=== PATIENT | female | born 1980 | race Hispanic/Latino ===

== ENCOUNTER 2024-04-03 21:13 | Emergency (ER) | payer BC ==
[~2024-04-03] VITALS: Ht 149.9 cm; Wt 70.3 kg
[2024-04-03 22:13] LABS: BASOPHILS # (AUTO) 0.04 K/uL (0.00-0.20); BASOPHILS % (AUTO) 0.6 % (0.0-5.0); EOSINOPHILS # (AUTO) 0.09 K/uL (0.00-0.70); EOSINOPHILS % (AUTO) 1.4 % (0.0-8.0); HEMATOCRIT 39.4 % (36-48); IMMATURE GRANULOCYTE ABSOLUTE 0.02 K/uL (0-1); LYMPHOCYTES % (AUTO) 30.6 % (21.0-51.0); MEAN CORPUSCULAR HEMOGLOBIN 30.5 pg (27.0-33.0); MEAN CORPUSCULAR VOLUME 89.7 fL (79-99); MONOCYTES # (AUTO) 0.6 K/uL (0.1-1.0); MONOCYTES % (AUTO) 8.7 % (3.0-13.0); NEUTROPHILS # (AUTO) 3.9 K/uL (1.8-7.7); NEUTROPHILS % (AUTO) 58.4 % (40.0-77.0); PLATELET COUNT (AUTO) 241 K/uL (130-400); RED BLOOD CELL COUNT(AUTO) 4.39 MIL/uL (4.00-5.50); WHITE BLOOD COUNT (AUTO) 6.6 K/uL (4.8-10.8)
[2024-04-03] MEDS: PROCHLORPERAZINE 10MG/2ML INJ IV ONE (22:20)
[2024-04-03] MEDS: DiphenhydrAMINE HCL 50 MG/ML VIAL IV STA (22:20)
[2024-04-03] MEDS: LACTATED RINGERS 1000ML 1,000 ML IV ONE (22:21)
[2024-04-03 22:22] LABS: BILIRUBIN,URINE NEGATIVE (NEGATIVE); COLOR,URINE LIGHT-YELLOW (YELLOW); CREATININE 0.8 mg/dL (0.5-1.0); GLUCOSE, URINE (UA) NEGATIVE (NEGATIVE); KETONES,URINE NEGATIVE (NEGATIVE); LEUKOCYTE ESTERASE ,URINE NEGATIVE Leu/uL (NEGATIVE); NITRATE,URINE NEGATIVE (NEGATIVE); OCCULT BLOOD,URINE NEGATIVE (NEGATIVE); POTASSIUM 3.3 mmol/L (3.5-5.1); PROTEIN,URINE NEGATIVE (NEGATIVE); UROBILINOGEN,URINE 0.2 mg/dL (0.2-1.0)
[2024-04-03 22:24] LABS: ADD UA MICROSCOPIC YES; APPEARANCE,URINE SLIGHTLY CLOUDY (CLEAR); HCG,QUALITATIVE URINE NEGATIVE (NEGATIVE)
[2024-04-03 22:26] LABS: BACTERIA,URINE RARE /HPF (None Seen); MUCUS,URINE RARE LPF (None Seen); SQUAMOUS EPITHELIAL CELL,UR MANY /HPF (0-2)
[2024-04-03 22:27] LABS: ALBUMIN 3.8 g/dL (3.5-5.0); BILIRUBIN,TOTAL 0.2 mg/dL (0.2-1.0); MAGNESIUM 1.9 mg/dL (1.80-2.40); TOTAL PROTEIN, SERUM 7.7 g/dL (6.0-8.3)
[2024-04-03] MEDS ORDERED: DICL20GE TP (22:48)
[2024-04-03 22:58] VITALS: BP 152/74; PULSE 82; RESP 20; O2SAT 98
[2024-04-03] MEDS: POTASSIUM BICARB/CIT AC 25 MEQ TABLET.EFF PO ONE (23:10)
== END 2024-04-03 23:10 | disposition home or self-care (01) ==
LOC: EDH 21:13
DX: G44.209 Tension-type headache, unspecified, not intractable (principal)
CPT/HCPCS: 99284; 96374; 96361; 96375; 82550; 83735; 80053; 85025; 81001; 81025; 36415; J7120; J1200; J0780

== ENCOUNTER 2025-11-13 02:34 | Emergency (ER) | payer BC ==
[~2025-11-13] VITALS: Ht 149.9 cm; Wt 74.8 kg
[~2025-11-13 02:34] MED LIST: DICL20GE TP
--- NOTE | 2025-11-13 03:03 | EKG ---
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
[2025-11-13 03:07] LABS: RAPID GROUP A STREP negative (NEGATIVE)
[2025-11-13 03:10] LABS: IMMATURE GRANULOCYTE ABSOLUTE 0.03 K/uL (0-1); NUCLEATED RED BLOOD CELLS 0.0 % (0.0-0.19); PLATELET COUNT (AUTO) 242 K/uL (130-400); RED BLOOD CELL COUNT(AUTO) 4.13 MIL/uL (4.00-5.50); RED CELL DISTRIBUTION WIDTH 12.3 % (11.0-15.5); WHITE BLOOD COUNT (AUTO) 12.0 K/uL (4.8-10.8)
[2025-11-13 03:12] LABS: SARS-CoV-2, RNA, NAAT NEGATIVE SARS CoV-2 (NEGATIVE)
[2025-11-13 03:15] LABS: ADD UA MICROSCOPIC YES; APPEARANCE,URINE CLEAR (CLEAR); GLUCOSE, URINE (UA) NEGATIVE (NEGATIVE); LEUKOCYTE ESTERASE ,URINE NEGATIVE Leu/uL (NEGATIVE); NITRATE,URINE NEGATIVE (NEGATIVE); OCCULT BLOOD,URINE LARGE (NEGATIVE)
[2025-11-13 03:17] LABS: INFLUENZA TYPE A Negative For Type A (NEGATIVE); INFLUENZA TYPE B Negative For Type B (NEGATIVE)
[2025-11-13 03:18] LABS: SQUAMOUS EPITHELIAL CELL,UR RARE /HPF (0-2)
[2025-11-13 03:23] LABS: CREATININE 0.8 mg/dL (0.5-1.0); GLOMERULAR FILTR. RATE CALC 93.0 mL/min (>90); GLUCOSE,RANDOM 113.0 mg/dL (70-105); SODIUM SERUM 139.0 mmol/L (136-145); UREA NITROGEN, BLOOD 11.0 mg/dL (7-18)
[2025-11-13 03:28] LABS: CREATINE KINASE, TOTAL 83.0 U/L (21-232)
--- NOTE | 2025-11-13 04:28 | ERN ---
ED Note History of Present Illness Stated Complaint: CHEST PAIN Chief Complaint: Chest Pain Time Seen by MD: 03:14 Dictation: This is a 45-year-old female who presented to the emergency room complaining of central chest pain cough and chest congestion going on for 5 days. She denied any fever chills or rigors. Reports scant amounts of mucus. No hemoptysis no recent travel or new pets at home. Temperature 98.4 pulse 80 respirations 20 blood pressure 172/99 with a pulse oximetry of 97% on room air Chronic medical problems include hypertension Allergies: Coded Allergies: No Known Allergies (Unverified Allergy, Unknown, 04/03/24) Home Meds Active Scripts Azithromycin (Azithromycin) 250 Mg Tablet, 1 TAB PO AD for 5 Days, #6 TAB 0 Refills 2 the first day followed by 1 for days 2-5 Prov:RIMMA SHI MD 11/13/25 Prednisone (Prednisone) 20 Mg Tablet, 1 TAB PO AD for 6 Days, #14 TAB 0 Refills TAKE 1 TAB BY MOUTH THREE TIMES PER DAY X3 DAYS, THEN TAKE 1 TAB BY MOUTH TWICE A DAY X2 DAYS, THEN TAKE 1 TAB BY MOUTH ONCE A DAY X1 DAY. Prov:RIMMA SHI MD 11/13/25 Diclofenac Sodium (Voltaren Arthritis Pain) 1 % Gel..gram., 20 GM TP BID for 14 Days, #60 TUBE Prov:NEERAJ MONTANO MD 04/03/24 Past Medical History Past Medical History: Hypertension Surgical History: Family History: Negative Social History: Negative LMP: Nov 12, 2025 RN Note Reviewed/Agreed w/PFSH: Yes Review of System Dictation Constitutional: Negative for fever,chills, and weight loss Eyes: Negative for injury, pain,redness, and discharge ENT: Negative for injury,pain or swelling Cardiovascular: Positive for chest pain, palpitations, and edema Respiratory: Negative for shortness of breath, positive for cough, and congestion Abdomen/GI: Negative for abdominal pain, nausea, vomiting, diarrhea, and constipation Back: Negative for injury and pain : Negative for injury, bleeding and discharge MS/Extremity: Negative for injury and deformity Skin: Negative for rash, and discoloration Neuro: Negative for headache, weakness, numbness, tingling, and seizure Psych: Negative for suicide ideation, homicidal ideation, and hallucinations Initial Vital Sign VS Vital Signs Date Time Temp Pulse Resp B/P (MAP) Pulse Ox O2 Delivery O2 Flow Rate FiO2 11/13/25 02:40 98.4 80 20 172/99 97 Room Air 0 11/13/25 03:13 21 Physical Exam Dictation General: awake, alert, NAD Head/Face: Normocephalic, atraumatic Eyes: PERRL, EOMI, vision at baseline ENT: oral cavity clear, TMs clear, no signs of infection Neck: Trachea midline, supple, no nuchal rigidity Cardiovascular: RRR, normal S1/S2, No MRGs, no JVD Respiratory: CTAB, no respiratory distress, No rales or wheezes Abdomen: Soft, non-tender, non-distended, normal bowel sounds, no guarding or rebound. Skin: Warm, dry, normal turgor, no rash MS/Extremity: Pulses equal, no cyanosis, neurovascular intact, FROM Neuro: COAx4, GCS 15, strength 5/5, CN 2-12 intact, normal cerebellar exam, normal gait, Psych: Normal behavior, mood, and affect normal Extremities-trace edema without any palpable cords, Homans sign is negative Results (Laboratory/Radiology) Laboratory/Radiology Laboratory Tests Test 11/13/25 02:47 11/13/25 02:50 11/13/25 03:04 Influenza Type A Antigen Negative For Type A Influenza Type B Antigen Negative For Type B SARS-CoV-2, RNA, NAAT NEGATIVE SARS CoV-2 Group A Streptococcus Rapid negative (NEGATIVE) Urine Color LIGHT-YELLOW (YELLOW) Urine Appearance CLEAR (CLEAR) Urine pH 6.0 (5.0-8.0) Urine Specific [place] 1.014 (1.001-1.031) Urine Protein NEGATIVE mg/dL (NEGATIVE) Urine Glucose (UA) NEGATIVE mg/dL (NEGATIVE) Urine Ketones NEGATIVE mg/dL (NEGATIVE) Urine Occult Blood LARGE (NEGATIVE) H Urine Nitrate NEGATIVE (NEGATIVE) Urine Bilirubin NEGATIVE mg/dL (NEGATIVE) Urine Urobilinogen 0.2 mg/dL (0.2-1.0) Urine Leukocyte Esterase NEGATIVE Max/uL Urine RBC 51-100 /HPF (0-1) H Urine WBC 0-1 /HPF (0-1) Urine Squamous Epithelial Cells RARE /HPF (0-2) Urine Bacteria None /HPF (None Seen) White Blood Count 12.0 K/uL (4.8-10.8) H Red Blood Count 4.13 MIL/uL (4.00-5.50) Hemoglobin 12.6 g/dL (12.0-16.0) Hematocrit 36.7 % (36-48) Mean Corpuscular Volume 88.9 fL (79-99) Mean Corpuscular Hemoglobin 30.5 pg (27.0-33.0) Mean Corpuscular Hemoglobin Concent 34.3 g/dL (32.0-36.0) Red Cell Distribution Width 12.3 % (11.0-15.5) Platelet Count 242 K/uL (130-400) Mean Platelet Volume 10.4 fL (7.5-10.5) Immature Granulocyte % (Auto) 0.2 % (0-1) Neutrophils (%) (Auto) 79.6 % (40.0-77.0) H Lymphocytes (%) (Auto) 11.7 % (21.0-51.0) L Monocytes (%) (Auto) 6.2 % (3.0-13.0) Eosinophils (%) (Auto) 1.9 % (0.0-8.0) Basophils (%) (Auto) 0.4 % (0.0-5.0) Neutrophils # (Auto) 9.6 K/uL (1.8-7.7) H Lymphocytes # (Auto) 1.4 K/uL (1.0-4.8) Monocytes # (Auto) 0.8 K/uL (0.1-1.0) Eosinophils # (Auto) 0.23 K/uL (0.00-0.70) Basophils # (Auto) 0.05 K/uL (0.00-0.20) Absolute Immature Granulocyte (auto 0.03 K/uL (0-1) Nucleated Red Blood Cells 0.0 % (0.0-0.19) Sodium Level 139 mmol/L (136-145) Potassium Level 4.1 mmol/L (3.5-5.1) Chloride Level 104 mmol/L (101-111) Carbon Dioxide Level 25 mmol/L (21-32) Blood Urea Nitrogen 11 mg/dL (7-18) Creatinine 0.8 mg/dL (0.5-1.0) Glomerular Filtration Rate Calc 93 mL/min (>90) Random Glucose 113 mg/dL (70-105) H Total Calcium 8.3 mg/dL (8.5-10.1) L Total Creatine Kinase 83 U/L (21-232) Troponin I High Sensitivity 5 ng/L (4-50) Labs Reviewed?: Yes EKG Comment: Twelve lead EKG done on 11/13/2025 at 2:54 a.m. showed a heart rate of 77, MI interval 156, QRS 83, QT/QTC 429/485 Impression normal sinus rhythm with no acute STT wave changes noted. Interpreted by ER MD Dr. Shi ED Course ED Course Orders Procedure Category Date Status Time 12 Lead Ekg Tracing- EKG 11/13/25 Complete Technical 02:46 Covid Rna Naat LAB 11/13/25 Complete 02:46 Rapid (Group A Strep) LAB 11/13/25 Complete 02:46 Influenza Type A & B, LAB 11/13/25 Complete Rapid 02:46 Urinalysis Profile LAB 11/13/25 Complete 02:51 Vital Signs Per CPOE 11/13/25 Transmitted Routine 03:01 Chest 1vw RAD 11/13/25 Taken 03:01 12 Lead Ekg Tracing- EKG 11/13/25 Logged Technical 03:01 Oxygen By Nc/Pulse Ox CPOE 11/13/25 Transmitted 03:01 Maintain Iv CPOE 11/13/25 Transmitted 03:01 Iv Insertion CPOE 11/13/25 Transmitted 03:01 Cardiac Monitoring CPOE 11/13/25 Transmitted 03:01 Pulse Oximetry With CPOE 11/13/25 Transmitted Vs And Prn 03:01 Cbc With Differential LAB 11/13/25 Complete 03:01 Activity: Br W/Brp CPOE 11/13/25 Transmitted With Assist 03:01 Creatine Kinase, Total LAB 11/13/25 Complete 03:01 Troponin I High LAB 11/13/25 Complete Sensitivity 03:01 Basic Metabolic Panel LAB 11/13/25 Complete 03:01 Methylprednisolone PHA 11/13/25 Complete Succ 125mg (Solu-Medr 04:30 Ipratropium/Albuterol PHA 11/13/25 Complete Neb (Duoneb) 04:30 Ketorolac PHA 11/13/25 Complete Tromethamine 30mg/Ml 04:30 Current Medications Medications (Trade) Dose Ordered Sig/Sofia Route PRN Reason Start Time Stop Time Status Last Admin Dose Admin Albuterol (DUOneb) 1 UDVIAL ONCE ONCE IH 11/13/25 04:30 11/13/25 04:31 DC 11/13/25 04:37 Ketorolac Tromethamine (toRADol) 30 mg ONCE ONCE IVP 11/13/25 04:30 11/13/25 04:31 DC 11/13/25 04:38 Methylprednisolone Sodium Succinate (Solu-medROL 125MG) 60 mg ONCE ONCE IVP 11/13/25 04:30 11/13/25 04:31 DC 11/13/25 04:37 Vital Signs Date Time Temp Pulse Resp B/P (MAP) Pulse Ox O2 Delivery O2 Flow Rate FiO2 11/13/25 05:05 78 20 147/84 98 Room Air* 0 21 11/13/25 04:37 70 18 11/13/25 03:13 99.1 75 20 162/93 98 Room Air* 0 11/13/25 02:40 98.4 80 20 172/99 97 Room Air 0 HEART Score Response (Comments) Value History: Low suspicion (0) 0 EKG: Normal 0 Age: < 45yrs (0) 0 Risk Factors: No known risk factors (0) 0 Initial Troponin: Normal limit (0) 0 HEART Score Risk: Low Risk for MACE (1-3) Total 0 Medical Decision Making MDM Differential diagnosis: COPD exacerbation, congestive heart failure, restrictive ventilatory impairment due to obesity and poor endurance, pulmonary embolus, bilateral pneumonia This is a 45-year-old female who presented to the emergency room complaining of central chest pain cough and chest congestion going on for 5 days. She denied any fever chills or rigors. Reports scant amounts of mucus. No hemoptysis no recent travel or new pets at home. Temperature 98.4 pulse 80 respirations 20 blood pressure 172/99 with a pulse oximetry of 97% on room air Chronic medical problems include hypertension 4:15 a.m. labs [place] [address] BNP 7 is with a normal limits. Nasopharyngeal swabs for COVID influenza negative urinalysis showed some occult hematuria no evidence of any UTI. EKG and chest x-ray are unremarkable Trial of steroid with a bronchodilator therapy and discharge her on a course of steroid and empiric antibiotic to cover for acute bronchitis I updated the patient and spouse on available labs plan of care and and answered all their questions Rationale: Tests considered and ordered secondary to shared decision making include: Labs EKG and chest x-ray Previous outside records reviewed: Old ER visits. Risk of complication and/or morbidity or mortality of patient management: None Medications-Per medication reconciliation Need for hospitalization: Patient does not meet criteria for hospitalization. Need for emergency major/minor surgery: No There are no social concerns with this patient. Prescription drug management Prescriptions will include symptomatic care Patient's prior external medical records from other ER visits were reviewed by me as indicated. Prior testing and results from previous visits were reviewed. Prior tests were taken into account with medical decision making and resource utilization, independent historian/historians were used to obtain complete medical history. I independently interpreted the test that were performed, results were reviewed by me and considered findings on radiology if ordered. Medical management and examination interpretation discussions were had by me with other qualified healthcare professionals as indicated for the patient's care. DX & DISP Disposition: Discharge Departure Impression: Primary Impression: Acute bronchitis Condition: Stable Scripts Azithromycin (Azithromycin) 250 Mg Tablet 1 TAB PO AD for 5 Days, #6 TAB 0 Refills 2 the first day followed by 1 for days 2-5 Prov: RIMMA SHI MD 11/13/25 Prednisone (Prednisone) 20 Mg Tablet 1 TAB PO AD for 6 Days, #14 TAB 0 Refills TAKE 1 TAB BY MOUTH THREE TIMES PER DAY X3 DAYS, THEN TAKE 1 TAB BY MOUTH TWICE A DAY X2 DAYS, THEN TAKE 1 TAB BY MOUTH ONCE A DAY X1 DAY. Prov: RIMMA SHI MD 11/13/25 Additional Instructions: Patient and the caregiver have been informed of all the diagnostic tests and the imaging conducted during the today's visit to the emergency room and has verbalized understanding of the results I have personally reviewed and interpreted all diagnostic exams performed here in the ER today as well as the vital signs documented by the nursing staff. The patient is now being discharged to home and should follow up with the primary care physician or the specialist as directed by the ER staff. 1 schedule a follow-up appointment; call your primary care physician's office on the next business day to set up a follow-up appointment. 2. Monitor symptoms; if your symptoms worsen return to the emergency room immediately. 3. Return to school/work; you may return to work or school in 2 days or as directed by your primary care physician. 4. Manage pain and fever; take [id number] Tylenol or Advil for pain or fever if there are no contraindications follow the recommended dosage instructions. 5. Stay well hydrated; drink plenty of oral fluids to stay hydrated. 6. Take prescribed medications; take any medications prescribed in the emergency room as directed bring them with you to your primary care physician visit for possible adjustments. 7. Complete medication course; finish the entire course of medication as prescribed even if you start feeling better. Do not have any leftover medication unless instructed otherwise. 8. Follow up on culture results; if a urine culture and wound culture was ordered in the emergency room please follow-up with your primary care physician within 2-3 days to review the culture and sensitivity report for appropriate antibiotic therapy adjustments. 9. Resume home medications; you may resume taking your home medications unless instructed otherwise. Referrals: SELF,REFERRAL (PCP) RIMMA HSI MD Nov 13, 2025 04:28
[2025-11-13 04:37] VITALS: PULSE 70; RESP 18
[2025-11-13] MEDS ORDERED: AZIT250T9 PO (05:04)
[2025-11-13] MEDS ORDERED: PRED20TA3 PO (05:04)
--- NOTE | 2025-11-13 05:41 | HMCIMG ---
EXAM: CR Chest, 1 View. CLINICAL HISTORY: CHEST PAIN COMPARISON: None provided. FINDINGS: LUNGS: There is no mass, infiltrate, or acute pulmonary abnormality. PLEURAL SPACES: No evidence of pleural effusion or pneumothorax. MEDIASTINUM: The cardiomediastinal silhouette is within normal limits. BONES: No aggressively appearing osseous lesion seen. IMPRESSION: No acute cardiopulmonary pathology is evident. /[place]
[2025-11-13 05:47] VITALS: BP 140/78; PULSE 72; RESP 18; TEMP 98.6; O2SAT 98
== END 2025-11-13 05:48 | disposition home or self-care (01) ==
LOC: EDH 02:34
DX: J20.9 Acute bronchitis, unspecified (principal); I10 Essential (primary) hypertension; Z79.1 Long term (current) use of non-steroidal anti-inflammatories (NSAID); Z20.822 Contact with and (suspected) exposure to COVID-19; Z98.890 Other specified postprocedural states
CPT/HCPCS: 99284; 96374; 71045; 87635; 96375; 82550; 84484; 80048; 85025; 87880; 87804 ×2; 81001; 36415; 93005; 94640; J1885; J2919